=== PATIENT | male | born 1950 | race Caucasian/White ===

== ENCOUNTER → 2016-03-10 | Outpatient (CLI) | payer OTHER ==
[~2016-03-10] MED LIST: ATOR20TA50 PO; BACL10TA PO; HYDR-2601 PO; LEVO75TA6 PO; LOSA100T27 PO; METF-316 PO; PANT1INJ3 PO; POTA10TA75 PO
== END | disposition home or self-care (01) ==
LOC: XY 12:55
PROVIDERS: ATTEND Internal Medicine
DX: M79.604 Pain in right leg (principal); M62.838 Other muscle spasm
CPT/HCPCS: 93925

== ENCOUNTER → 2016-04-03 | Outpatient (CLI) | payer OTHER ==
[2016-04-03 14:29] LABS: Potassium 3.6 mmol/L (3.5-5.1)
[2016-04-03 15:18] LABS: BUN/Creatinine Ratio 10.8
== END | disposition home or self-care (01) ==
LOC: LAB 11:40
PROVIDERS: ATTEND Internal Medicine
DX: Z00.00 Encounter for general adult medical examination without abnormal findings (principal)
CPT/HCPCS: 36415; 80048; 80061; 83036

== ENCOUNTER → 2016-10-01 | Outpatient (CLI) | payer OTHER ==
[~2016-10-01] MED LIST changes: -METF-316 PO; +METF-372 PO
[2016-10-01 15:59] LABS: Basophils # (auto) 0 uL; Basophils % (auto) 0.4 % (0.0-2.0); CONDITION Y; Eosinophils # (auto) 0.4 uL; Eosinophils % (auto) 5.3 % (0.0-7.0); Hematocrit 39.3 % (41.0-53.0); Hemoglobin 13.3 g/dL (13.5-17.5); Lymphocytes # (auto) 1.8 uL; Lymphocytes % (auto) 25.4 % (10.0-50.0); Mean Corpuscular Hemoglobin 29.7 pg (28.0-32.0); Mean Corpuscular Hgb Conc. 33.7 g/dL (32.0-36.0); Mean Corpuscular Volume 88.1 fL (80.0-100.0); Mean Platelet Volume 8.3 fL (7.4-10.4); Monocytes # (auto) 0.5 uL; Monocytes % (auto) 6.7 % (0.0-12.0); Neutrophils # (auto) 4.4 uL; Neutrophils % (auto) 62.2 % (37.0-80.0); Platelet Count (auto) 311 10^3/uL (140-450); Red Cell Distribution Width 14.6 % (11.6-16.0)
[2016-10-01 16:12] LABS: BUN/Creatinine Ratio 9.2; Bilirubin, Total 0.7 mg/dL (0.2-1.0); Calcium 8.6 mg/dL (8.5-10.1); Potassium 3.5 mmol/L (3.5-5.1); Total Protein 7.7 g/dL (6.4-8.2)
[2016-10-01 16:27] LABS: Urine Bilirubin Negative (Negative); Urine Blood Negative /uL (Negative); Urine Color Yellow (Yellow); Urine Glucose Normal (Normal); Urine Ketone Negative (Negative); Urine Nitrite Negative (Negative); Urine RBC <1 /hpf (0 - 3); Urine Squamous Epithelial Cell FEW /hpf (<5); Urine Urobilinogen Normal (Negative); Urine pH 5.5 (5.0-8.0)
== END | disposition home or self-care (01) ==
LOC: LAB 15:18
PROVIDERS: ATTEND Internal Medicine
DX: E11.9 Type 2 diabetes mellitus without complications (principal); E78.2 Mixed hyperlipidemia; I10 Essential (primary) hypertension; E03.9 Hypothyroidism, unspecified
CPT/HCPCS: 36415; 80053; 81001; 83036; 84153; 84443; 85025; 86803

== ENCOUNTER → 2017-07-08 | Outpatient (CLI) | payer OTHER | END | disposition home or self-care (01) | LOC: LAB 13:06 | PROVIDERS: ATTEND Physician Assistant | DX: E11.9 Type 2 diabetes mellitus without complications (principal); I10 Essential (primary) hypertension; E03.9 Hypothyroidism, unspecified | CPT/HCPCS: 36415; 82043; 83036 ==

== ENCOUNTER → 2017-07-21 | Outpatient (CLI) | payer OTHER ==
[2017-07-21 09:11] LABS: Basophils # (auto) 0.1 uL; Basophils % (auto) 0.9 % (0.0-2.0); Eosinophils # (auto) 0.2 uL; Eosinophils % (auto) 3.7 % (0.0-7.0); Hematocrit 40.2 % (41.0-53.0); Hemoglobin 13.3 g/dL (13.5-17.5); Lymphocytes # (auto) 1.8 uL; Lymphocytes % (auto) 27.8 % (10.0-50.0); Mean Corpuscular Hemoglobin 28.4 pg (28.0-32.0); Mean Corpuscular Hgb Conc. 33.2 g/dL (32.0-36.0); Mean Corpuscular Volume 85.5 fL (80.0-100.0); Monocytes # (auto) 0.5 uL; Neutrophils # (auto) 3.9 uL; Neutrophils % (auto) 59.6 % (37.0-80.0); Platelet Count (auto) 302 10^3/uL (140-450); Red Cell Distribution Width 15.1 % (11.8-14.3); White Blood Cell 6.5 10^3/uL (4.4-10.8)
[2017-07-21 09:46] LABS: Albumin 4.2 g/dL (3.4-5.0); BUN/Creatinine Ratio 12.3; Bilirubin, Total 0.6 mg/dL (0.2-1.0); Calcium 8.9 mg/dL (8.5-10.1); Potassium 3.6 mmol/L (3.5-5.1); Total Protein 7.9 g/dL (6.4-8.2)
== END | disposition home or self-care (01) ==
LOC: LAB 08:43
PROVIDERS: ATTEND Registered Nurse General Practice
DX: E03.9 Hypothyroidism, unspecified (principal); R19.7 Diarrhea, unspecified; R42 Dizziness and giddiness; E11.9 Type 2 diabetes mellitus without complications; I10 Essential (primary) hypertension
CPT/HCPCS: 36415; 80053; 80061; 83036; 84439; 84443; 85025; 86677; 87045; 87177; 87899

== ENCOUNTER 2023-07-19 22:46 | Emergency (ER) | payer OTHER ==
[~2023-07-19] VITALS: Ht 170.2 cm; Wt 84.0 kg
[~2023-07-19 22:46] MED LIST changes: +LOSA-535 PO; -LOSA100T27 PO; +POTA-264 PO; -POTA10TA75 PO
[2023-07-19 23:30] VITALS: PULSE 74; RESP 18; O2SAT 99
[2023-07-20 00:26] LABS: Basophils # (auto) 0.1 10 ^3/uL (0-0.2); Basophils % (auto) 0.9 % (0.0-2.0); Eosinophils # (auto) 0.2 10 ^3/uL (0-0.8); Eosinophils % (auto) 2.5 % (0.0-7.0); Hematocrit 41.6 % (41.0-53.0); Hemoglobin 13.6 g/dL (13.5-17.5); Lymphocytes # (auto) 1.9 10 ^3/uL (0.4-5.4); Lymphocytes % (auto) 27.7 % (10.0-50.0); Mean Corpuscular Hemoglobin 28.2 pg (28.0-32.0); Mean Corpuscular Hgb Conc. 32.8 g/dL (32.0-36.0); Monocytes # (auto) 0.7 10 ^3/uL (0-1.3); Monocytes % (auto) 9.9 % (0.0-12.0); Red Blood Cells 4.83 10^6/uL (4.5-5.90); Red Cell Distribution Width 15.6 % (11.8-14.3); White Blood Cell 6.9 10^3/uL (4.4-10.8)
[2023-07-20] MEDS: diazePAM 5 MG TAB PO ONE (00:38)
[2023-07-20] MEDS: MORPHINE SULFATE 4 MG/ML SYR/VIAL IV ONE (00:38)
[2023-07-20 00:39] LABS: Chloride 102 mmol/L (98-107); Potassium 3.1 mmol/L (3.5-5.1); Sodium 138 mmol/L (136-145)
[2023-07-20 00:40] LABS: Anion Gap 10 (5-15); Calcium 9.9 mg/dL (8.7-10.4); Carbon Dioxide 26 mmol/L (20-30)
[2023-07-20 00:45] LABS: BUN/Creatinine Ratio 11.5 (10.0-20.0); Blood Urea Nitrogen 18 mg/dL (9-23); Glucose 111 mg/dL (74-106)
[2023-07-20] MEDS: POTASSIUM CHL 20 Meq TABLET PO ONE (01:01)
[2023-07-20 01:15] VITALS: BP 138/72; PULSE 87; RESP 16
[2023-07-20] MEDS ORDERED: DIAZ-681 PO (01:34)
== END 2023-07-20 02:27 | disposition home or self-care (01) ==
LOC: EDBD 22:46 → ER 22:46
DX: M62.838 Other muscle spasm (principal); E87.6 Hypokalemia; E11.9 Type 2 diabetes mellitus without complications; E78.5 Hyperlipidemia, unspecified; I10 Essential (primary) hypertension; Z90.49 Acquired absence of other specified parts of digestive tract; Z86.73 Personal history of transient ischemic attack (TIA), and cerebral infarction without residual deficits; Z88.1 Allergy status to other antibiotic agents; Z88.0 Allergy status to penicillin; Z88.8 Allergy status to other drugs, medicaments and biological substances
CPT/HCPCS: 36415; 80048; 83735; 85025; 93005; 96374; 99284; J2270

== ENCOUNTER 2024-06-15 17:05 | Emergency (ER) | payer OTHER ==
[~2024-06-15] VITALS: Ht 175.3 cm; Wt 78.2 kg
[~2024-06-15 17:05] MED LIST changes: +DIAZ-681 PO
[2024-06-15 17:25] VITALS: BP 133/76; PULSE 100; RESP 18; TEMP 97.7; O2SAT 100
[2024-06-15] MEDS ORDERED: FLEET ENEMA(ADULT) 135 ML PR ONE (17:30)
--- NOTE | 2024-06-15 18:11 | ED.PDOC ---
GI ASSESSMENT HPI Comments 74y M who presents to the ED for chief complaint of constipation. Pt states he has been having constipation for the past 3 days, and has not had a bowel movemement. Pt states he has been having associated rectal pain stating he feels like there is a ball of stool, in his rectum. Pt otherwise denies nausea, vomiting, diarrhea, fever, cough, chills, dysuria, chest pain or shortness of breath. Pt states he has had these symptoms in the past and states he was given enema and it helped to relieve his symptoms. Pt states he has in the past used a toothbrush to disimpact fecal material with minimal relief. Pt has stable vitals with temp of 97.7F, RR 18, 02 sat of 100%, and BP of 133/76. Pt in the ED, otherwise denies any other symptoms. Chief Complaint: Constipation Time Seen by MD: 17:30 Primary Care Provider: GREG Cole Notes: Medications, Allergies Allergies: Coded Allergies: Amoxicillin (Verified Allergy, Unknown, 12/29/13) Clavulanic Acid (Verified Allergy, Unknown, 12/29/13) Lisinopril (Verified Allergy, Unknown, 12/29/13) Penicillins (Verified Allergy, Unknown, 12/29/13) Home Meds Active Scripts Diazepam (Valium) 5 Mg Tab, 1 TAB PO TID PRN, #30 TAB Prov:FERRERJU T DO 07/20/23 Reported Medications Baclofen (Baclofen) 10 Mg Tab, 10 MG PO BID, TAB 01/02/14 Hydrocodone-Acetaminophen (Hydrocodone/Acetaminophen) 1 Tab Tab, 1 TAB PO TIDP 01/02/14 Potassium Chloride (K-Tabs) 10 Meq Tab, 10 MEQ PO DAILY, TAB 01/02/14 Losartan Potassium (Losartan Potassium) 100 Mg Tab, 1 TAB PO DAILY, #30 TAB 5 Refills 01/02/14 Metformin Hydrochloride (Metformin Hcl) 1,000 Mg Tab, 1 TAB PO BID, #60 TAB 5 Refills 01/02/14 Pantoprazole Sodium (PANTOPRAZOLE SODIUM) 40 Mg Inj, 40 MG PO BID 01/02/14 Atorvastatin Calcium (ATORVASTATIN CALCIUM) 20 Mg Tab, 1 TAB PO DAILY, #30 TAB 5 Refills 01/02/14 Levothyroxine Sodium (Levothyroxine Sodium) 75 Mcg Tab, 1 TAB PO DAILY, #30 TAB 5 Refills 01/02/14 Information Source: Patient Mode of Arrival: Ambulatory Past Medical History PAST MEDICAL HISTORY: CVA (With residual right-sided deficit), DM, High Lipids, HTN Surgical History: Appendectomy, Tonsillectomy Surgical History (Other): Hemorrhoidectomy Family History Family History: Unobtainable Social History Smoker: Non-Smoker Alcohol: Denies ETOH Use Drugs: Denies Drug Use Lives In: Home Constitutional: denies: chills, diaphoresis, fatigue, fever, malaise, sweats, weakness, others EENTM: denies: blurred vision, double vision, ear bleeding, ear discharge, ear drainage, ear pain, ear ringing, eye pain, eye redness, hearing loss, mouth pain, mouth swelling, nasal discharge, nose bleeding, nose congestion, nose pain, photophobia, tearing, throat pain, throat swelling, voice changes, others Respiratory: denies: cough, hemoptysis, orthopnea, SOB at rest, shortness of breath, SOB with excertion, stridor, wheezing, others Cardiovascular: denies: chest pain, dizzy spells, diaphoresis, Dyspnea on exertion, edema, irregular heart beat, left arm pain, lightheadedness, palpitations, PND, syncope, others Gastrointestinal: reports: constipated; denies: abdomen distended, abdominal pain, blood streaked bowels, diarrhea, dysphagia, difficulty swallowing, hematemesis, melena, nausea, poor appetite, poor fluid intake, rectal bleeding, rectal pain, vomiting, others Genitourinary: denies: burning, dysuria, flank pain, frequency, hematuria, incontinence, penile discharge, penile sore, pain, testicle pain, testicle swelling, urgency, others Neurological: denies: dizziness, fainting, headache, left sided numbness, left sided weakness, numbness, paresthesia, pre-existing deficit, right sided numbness, right sided weakness, seizure, speech problems, tingling, tremors, weakness, others Musculoskeletal: denies: back pain, gout, joint pain, joint swelling, muscle pain, muscle stiffness, neck pain, others Integumetry: denies: bruises, change in color, change in hair/nails, dryness, laceration, lesions, lumps, rash, wounds, others Allergic/Immunocompromised: denies: Difficulty Healing, Frequent Infections, Hives, Itching, others Hematologic/Lymphatic: denies: anemia, blood clots, easy bleeding, easy bruising, swollen glands, others Endocrine: denies: excessive hunger, excessive sweating, excessive thirst, excessive urination, flushing, intolerance to cold, intolerance to heat, unexplained weight gain, unexplained weight loss, others Psychiatric: denies: anxiety, bipolar disorder, depression, hopeless, panic disorder, schizophrenia, sleepless, suicidal, others All Other Systems: Reviewed and Negative Physical Exam General Appearance: No Apparent Distress HEENT: Other (Pupils and face symmetric. Moist mucous membranes.) Neck: Full Range of Motion, Normal Inspection Respiratory: Lungs Clear, No Accessory Muscle Use, No Respiratory Distress, Normal Breath Sounds Cardiovascular: No Edema, No JVD, Regular Rate/Rhythm Breast Exam: Deferred Gastrointestinal: Soft, Suprapubic, Tenderness Genitalia: Deferred Pelvic: Deferred Rectal: Deferred Extremities: Normal inspection, Normal range of motion, Non-tender, No pedal edema Neurologic: Alert (Oriented x4), Other (Ambulatory with walker) Cerebellar Function: NOT DONE Reflexes: NOT DONE Skin: Dry, Normal Color, Warm Lymphatic: NOT DONE Was a procedure done? Was a procedure done?: No GI differential Dx Differential Diagnosis: Constipation, Diverticular disease, Gastritis/PUD, Gastroenteritis, Inflammatory BD, Ischemic Bowel, UTI, Hypovolemia, Impaction, Stress Ulcer, Kidney Stone Other Differential Diagnosis hemorrhoids, fecal impaction, bowel obstruction, colitis, diverticulitis, among others X-Ray, Labs, Meds, VS Vital Signs Date Time Temp Pulse Resp B/P (MAP) Pulse Ox O2 Delivery O2 Flow Rate FiO2 06/15/24 17:25 97.7 100 18 133/76 (95) 100 97.7 Lab Test 06/15/24 18:06 Range/Units White Blood Count 12.5 H 4.4-10.8 10^3/uL Red Blood Count 4.97 4.5-5.90 10^6/uL Hemoglobin 14.1 13.5-17.5 g/dL Hematocrit 42.1 41.0-53.0 % Mean Corpuscular Volume 84.7 80.0-100.0 fL Mean Corpuscular Hemoglobin 28.3 28.0-32.0 pg Mean Corpuscular Hemoglobin Concent 33.4 32.0-36.0 g/dL Red Cell Distribution Width 15.1 H 11.8-14.3 % Platelet Count 326 140-450 10^3/uL Mean Platelet Volume 7.6 6.9-10.8 fL Neutrophils (%) (Auto) 37.0-80.0 % Lymphocytes (%) (Auto) 10.0-50.0 % Monocytes (%) (Auto) 0.0-12.0 % Basophils (%) (Auto) 0.0-2.0 % Neutrophils # (Auto) 1.6-8.6 10 ^3/uL Lymphocytes # (Auto) 0.4-5.4 10 ^3/uL Monocytes # (Auto) 0-1.3 10 ^3/uL Differential Total Cells Counted 100.0 100 Neutrophils % (Manual) 82 H 37.0-80.0 Band Neutrophils % (Manual) 10 Lymphocytes % (Manual) 4 L 10.0-50.0 Monocytes % (Manual) 3 0-12 Eosinophils % (Manual) 1 0-7 Basophils % (Manual) 0 0.0-2.0 Metamyelocytes % (manual) 0 Myelocytes % (Manual) 0 Promyelocytes % (Manual) 0 Blast Cells % (Manual) 0 Reactive Lymphocytes 0 Platelet Estimate Adequate Sodium Level 137 136-145 mmol/L Potassium Level 3.5 3.5-5.1 mmol/L Chloride Level 98 98-107 mmol/L Carbon Dioxide Level 25 20-31 mmol/L Anion Gap 14 5-15 Blood Urea Nitrogen 27 H 9-23 mg/dL Creatinine 1.60 H 0.700-1.30 mg/dL Glomerular Filtration Rate Calc 45 >90 mL/min BUN/Creatinine Ratio 16.9 10.0-20.0 Serum Glucose 131 H 74-106 mg/dL Calcium Level 10.0 8.7-10.4 mg/dL [address] [address] Ph: [phone] DIAGNOSTIC IMAGING Diagnostic Imaging Report : [id number] Signed PATIENT: CARLENE MARC ACCT: [id number] UNIT: [id number] : 1950 LOC: ER ROOM / BED: / AGE / SEX: 74 / M ADM STATUS: REG ER SERVICE [id number] ORDERING PHYSICIAN: LAURO RODRIGUEZ MD PROCEDURE(s): ABPL - CT AB PEL WO CON-NO ORAL OR IV REASON: low abd/rectal pain, constipation ORDER NUMBER(s): [id number], ACCESSION NUMBER(s): [id number] Procedure: CT CT AB PEL WO CON-NO ORAL OR IV 06/15/2024 05:49 PM Indication: low abd/rectal pain, constipation Comparison Study: None Technique: Axial images were obtained and reformatted in coronal and sagittal planes. All CT scans at this medical facility are performed using dose modulation techniques as appropriate to a performed exam including the following: Automated exposure control was utilized; adjustment of the MA and/or KV according to patient size; and use of iterative reconstruction technique. CT Dose: CTDI volume is 7.3 mGy. Dose-length product is 454 mGy*cm FINDINGS: Lower Chest: Unremarkable. Hepatobiliary: Unremarkable. Spleen: Unremarkable. Pancreas: Unremarkable. Adrenal Glands: Unremarkable. tract: Mildly atrophic left kidney. No hydronephrosis or ureterolithiasis bilaterally. An exophytic approximate 1 cm cyst arising from the upper pole of the right kidney, incompletely evaluated without IV contrast. Further evaluation with ultrasound could be completed on an nonemergent basis if clinically indicated. The urinary bladder is unremarkable. GI tract: The stomach is grossly normal in appearance. No evidence of small bowel obstruction. Mild fecal retention in the descending and sigmoid colon. The appendix is normal. Moderate fecal retention noted in the rectum with mild rectal wall thickening and minimal presacral edema. Lymphatics: No mesenteric, retroperitoneal or periportal lymphadenopathy. Vasculature: Aorta is normal in caliber. Scattered calcified plaques are noted. Pelvic Organs: Unremarkable Bones/soft tissues: No acute abnormality. Multilevel degenerative changes of the lumbar spine noted. Other: None. IMPRESSION: 1. Moderate fecal retention rectal fecal impaction associated mild rectal wall thickening presacral edema suggesting stercoral colitis. ATED BY: MACIE FRANKLIN MD DICTATED DATE/TIME: 06/15/241838 SIGNED BY: MACIE FRANKLIN MD SIGNED DATE/TIME: 06/15/241838 CC: X-Ray, Labs, Meds, VS Comment 74-year-old male with a history of hypertension, diabetes, CVA, dyslipidemia complaining of constipation and rectal pain Vitals unremarkable Exam remarkable for mild suprapubic tenderness to palpation Rhythm strip independently interpreted by me: Sinus rhythm, rate 100, no ectopy. CT abdomen and pelvis: IMPRESSION: 1. Moderate fecal retention rectal fecal impaction associated mild rectal wall thickening presacral edema suggesting stercoral colitis. CBC remarkable for WBC 12.5, metabolic panel remarkable for BUN 27, creatinine 1.6 The following was ordered for the patient: Fleet enema x1, Levaquin 500 mg IV, Flagyl 500 mg IV Plan was to admit the patient for disimpaction and IV antibiotics. At 6:30 p.m. patient stated he felt better and did not want to stay to complete treatment. Patient left the ED prior to my ability to re-evaluate or discuss results and plan. Patient left the ED prior to signing the AMA form. Time of 1ST Reevaluation: 18:00 Reevaluation 1ST: Unchanged Patient Education/Counseling: Diagnosis, Treatment Family Education/Counseling: No Family Present Departure 1 Departure Time of Disposition: 19:23 Impression: Primary Impression: Fecal impaction in rectum Additional Impression: Colitis Disposition: 07 LEFT AWOL/ELOPED Condition: Fair Discharged With: Relative Critical Care Note Critical Care Time?: No Stability Stability form required: No Heart Score Heart Score: Heart Score Response (Comments) Value History N/A 0 EKG N/A 0 Age N/A 0 Risk Factors N/A 0 Troponin N/A 0 Total 0 I personally scribed for LAURO RODRIGUEZ MD ([facility]) on 06/15/24 at 18:11. Electronically submitted by Brenda Velasco ([facility] I personally scribed for LAURO RODRIGUEZ MD ([facility]) on 06/15/24 at 18:48. Electronically submitted by Brenda Velasco ([facility]). LAURO RODRIGUEZ MD Jun 15, 2024 18:11
[2024-06-15 18:37] LABS: Hematocrit 42.1 % (41.0-53.0); Hemoglobin 14.1 g/dL (13.5-17.5); Mean Corpuscular Hemoglobin 28.3 pg (28.0-32.0); Mean Corpuscular Hgb Conc. 33.4 g/dL (32.0-36.0); Mean Corpuscular Volume 84.7 fL (80.0-100.0); Platelet Count (auto) 326 10^3/uL (140-450); Red Blood Cells 4.97 10^6/uL (4.5-5.90); Red Cell Distribution Width 15.1 % (11.8-14.3); White Blood Cell 12.5 10^3/uL (4.4-10.8)
[2024-06-15 18:41] LABS: Chloride 98 mmol/L (98-107); Potassium 3.5 mmol/L (3.5-5.1); Sodium 137 mmol/L (136-145)
[2024-06-15 18:42] LABS: Anion Gap 14 (5-15); Carbon Dioxide 25 mmol/L (20-31)
--- NOTE | 2024-06-15 18:42 | DVH ---
Procedure: CT CT AB PEL WO CON-NO ORAL OR IV 06/15/2024 05:49 PM Indication: low abd/rectal pain, constipation Comparison Study: None Technique: Axial images were obtained and reformatted in coronal and sagittal planes. All CT scans at this medical facility are performed using dose modulation techniques as appropriate to a performed e xam including the following: Automated exposure control was utilized; adjustment of the MA and/or KV according to patient size; and use of iterative reconstruction technique. CT Dose: CTDI volume is 7.3 mGy. Dose-length product is 454 mGy*cm FINDINGS: Lower Chest: Unremarkable. Hepatobiliary: Unremarkable. Spleen: Unremarkable. Pancreas: Unremarkable. Adrenal Glands: Unremarkable. tract: Mildly atrophic left kidney. No hydronephrosis or ureterolithiasis bilaterally. An exophyti c approximate 1 cm cyst arising from the upper pole of the right kidney, incompletely evaluated witho ut IV contrast. Further evaluation with ultrasound could be completed on an nonemergent basis if cli nically indicated. The urinary bladder is unremarkable. GI tract: The stomach is grossly normal in appearance. No evidence of small bowel obstruction. Mild f ecal retention in the descending and sigmoid colon. The appendix is normal. Moderate fecal retention noted in the rectum with mild rectal wall thickening and minimal presacral edema. Lymphatics: No mesenteric, retroperitoneal or periportal lymphadenopathy. Vasculature: Aorta is normal in caliber. Scattered calcified plaques are noted. Pelvic Organs: Unremarkable Bones/soft tissues: No acute abnormality. Multilevel degenerative changes of the lumbar spine noted. Other: None. IMPRESSION: 1. Moderate fecal retention rectal fecal impaction associated mild rectal wall thickening presacral e ravi suggesting stercoral colitis.
[2024-06-15 18:43] LABS: Basophils % (manual) 0 (0.0-2.0); Blast Cells 0; Metamyelocytes % 0; Myelocytes % 0; Promyelocytes % 0; Reactive Lymphocytes 0
[2024-06-15 18:47] LABS: BUN/Creatinine Ratio 16.9 (10.0-20.0); Blood Urea Nitrogen 27 mg/dL (9-23); Glucose 131 mg/dL (74-106)
[2024-06-15 19:06] LABS: Band Neutrophils % (manual) 10; Eosinophils % (manual) 1 (0-7); Lymphocytes % (manual) 4 (10.0-50.0); Monocytes % (manual) 3 (0-12); Platelet Estimate Adequate
== END 2024-06-15 20:18 | disposition left against medical advice (07) ==
LOC: ER 17:05
DX: K52.9 Noninfective gastroenteritis and colitis, unspecified (principal); K59.00 Constipation, unspecified; E11.9 Type 2 diabetes mellitus without complications; E78.5 Hyperlipidemia, unspecified; I10 Essential (primary) hypertension; Z90.49 Acquired absence of other specified parts of digestive tract; Z90.89 Acquired absence of other organs; Z79.84 Long term (current) use of oral hypoglycemic drugs; Z79.899 Other long term (current) drug therapy; Z86.73 Personal history of transient ischemic attack (TIA), and cerebral infarction without residual deficits; Z88.0 Allergy status to penicillin; Z88.8 Allergy status to other drugs, medicaments and biological substances; Z88.1 Allergy status to other antibiotic agents
CPT/HCPCS: 36415; 74176; 80048; 85007; 85027